=== PATIENT | female | born 1965 | race Caucasian/White ===

== ENCOUNTER 2022-03-03 07:07 | Day surgery (SDC) | payer OTHER ==
[2022-03-01 15:13] LABS: Absolute Lymphocytes (CBC) 3.5 K/uL (0.7-4.9); Hematocrit 45.8 % (36.0-45.0); Lymphocytes % 29.4 % (15.3-44.8); MCV 82.6 fL (80-100); MPV 8.6 fL (7.6-11.3); RBC Red Blood Cell Count 5.54 M/uL (3.86-4.86)
--- NOTE | 2022-03-01 15:22 | RAD REPORT ---
EXAM DESCRIPTION: RAD - Chest Pa And Lat (2 Views) - 03/01/2022 3:01 pm CLINICAL HISTORY: PRE OP Chest pain. COMPARISON: CHEST PA AND LAT 2 VIEW dated 08/10/2010; CHEST PA AND LAT 2 VIEW dated 11/29/2000 FINDINGS: The lungs are clear. The heart is normal in size. No displaced fractures. IMPRESSION: No acute or concerning finding suspected.
[2022-03-01 15:30] LABS: SARS-CoV-2 Antigen Rapid Res Negative (Negative)
[2022-03-01 15:36] LABS: Potassium 4.5 mmol/L (3.5-5.1)
--- NOTE | 2022-03-02 13:05 | EKG ---
Test Date: 2022-03-01 Test Time: 14:42:06 Telegraph Service Clerk: ED MEASUREMENT RESULTS: Intervals: Rate: 86 VA: 154 QRSD: 82 QT: 360 QTc: 430 [place]: P: 53 VA: 154 QRS: 63 T: 64 INTERPRETIVE STATEMENTS: Normal sinus rhythm Normal ECG Compared to ECG 08/10/2010 13:51:50 No significant changes Electronically Signed On 03-02-22 13:04:21 CDT by Ricky Hoover
[2022-03-03] MEDS ORDERED: NA CHLORIDE 0.9% 1,000 ML ONE (07:35)
[2022-03-03] MEDS ORDERED: CIPROFLOXACIN 400mg IV 400 MG/200 ML BAG IV ONE (07:45)
[2022-03-03] MEDS ORDERED: ACETAMINOPHEN 500 MG TAB ONE (08:08)
[2022-03-03] MEDS ORDERED: CELECOXIB 100 MG CAPSULE ONE (08:09)
[2022-03-03] MEDS ORDERED: propofoL 200 MG/20 ML VIAL IV ONE (08:35)
[2022-03-03] MEDS ORDERED: LIDOCAINE 1% MPF 5 ML VIAL ONE (08:35)
[2022-03-03] MEDS ORDERED: FENTANYL CITR 100 MCG/2 ML ONE ×2 (08:35→09:28)
[2022-03-03] MEDS ORDERED: ROCURONIUM 50 MG/5 ML VIAL IV ONE (08:35)
[2022-03-03] MEDS ORDERED: MIDAZOLAM HCL 2 MG/2 ML INJ ONE (08:35)
[2022-03-03] MEDS ORDERED: KETOROLAC 30 MG/ML INJ ONE (09:27)
[2022-03-03] MEDS ORDERED: dexAMETHasone 10 MG/ML VIAL ONE (09:27)
[2022-03-03] MEDS ORDERED: ONDANSETRON 4 MG/2 ML VIAL ONE (09:28)
[2022-03-03] MEDS ORDERED: GLYCOPYRROLATE 0.2 MG/ML SYR ONE (09:32)
[2022-03-03] MEDS ORDERED: HYDROCODONE/APAP 7.5/325 MG TAB PO PRN (10:02)
[2022-03-03] MEDS ORDERED: NEOSTIGMINE 1 MG/ML -10 ML VIAL ONE (10:03)
--- NOTE | 2022-03-03 10:11 | P.OP ---
Date of Service: 03/03/22 Preop diagnosis: Incarcerated umbilical hernia Postop diagnosis: Same with extensive adhesions in the left side of the abdomen Procedure performed: Laparoscopic repair of incarcerated umbilical hernia, lysis of adhesion Surgeon: Michael Johnson MD [employer] Facility Operator: NEFTALI Jauregui Estimated blood loss: Minimal Specimen: Hernia sac and contents Findings: As above Anesthesia: General Complications: None Drains: None Fluids and blood products: Nonapplicable Disposition: Recovery room Operative note: Patient brought to the OR and placed in the supine position. General anesthesia begun. Patient prepped and draped in the usual sterile fashion. Marcaine 0.5% infiltrated locally. 15 blade used to make a 1 cm left upper quadrant incision. Subcutaneous tissue divided. Fascia none findings identified and divided. #1 Vicryl stay suture placed. Peritoneal cavity entered with sharp and blunt dissection. 12 mm trocar placed into the peritoneal cavity under direct vision. Pneumoperitoneum established. 2 5 mm trochars placed1 in the left lower quadrant and 1 in the left middle quadrant. Laparoscopy revealed incarcerated omentum. This was carefully dissected with LigaSure. And then, a 3 cm incision was made over the umbilicus. Subcutaneous tissue divided. Hernia sac and contents identified and excised. A 2 cm defect remained. #1 PDS [id number] suture was used to close the defect. Then pneumoperitoneum reestablished. Bard balloon system mesh deployed, in the standard fashion. Complete coverage of the the hernia accomplished with at least 3 cm borders in all direction. Sorbitex used to secure the mesh to the peritoneal surface. And then all components of the balloon system was removed intact. Left upper quadrant was examined and there was extensive omental adhesions there. LigaSure was used to lyse all of these adhesions. Approximately 10 to 12 minutes were needed to lyse all of the adhesions. There was no evidence of bleeding or bowel injury appreciated in the peritoneal cavity. Then all trochars removed under direct vision. Stay sutures tied to each other reapproximate the fascial defect. Subcutaneous tissue area irrigated bleeding controlled with cautery. 3-0 chromic used to approximate the subcutaneous tissue and close skin. Sterile dressing applied. Patient awakened and taken to recovery room in good general condition. CC: Dr. Ward's office
[2022-03-03] MEDS ORDERED: HYDROCODONE/APAP 7.5/325 MG TAB ONE (11:22)
[2022-03-03 14:25] VITALS: BP 138/75; TEMP 97.3; O2SAT 93
== END 2022-03-03 11:30 | disposition home or self-care (01) ==
LOC: OR 07:07
PROVIDERS: ATTEND Surgery
PROC: 0DNU4ZZ Release Omentum, Percutaneous Endoscopic Approach (ICD-10-PCS; 2022-03-03)
PROC: 0WUF4JZ Supplement Abdominal Wall with Synthetic Substitute, Percutaneous Endoscopic Approach (ICD-10-PCS; principal; 2022-03-03 08:30)
DX: K42.0 Umbilical hernia with obstruction, without gangrene (principal); K66.0 Peritoneal adhesions (postprocedural) (postinfection); Z20.822 Contact with and (suspected) exposure to COVID-19
CPT/HCPCS: 93005; 85025; 80048; 36415; 82947 ×2; 88302; 71046; 87811; 49653; 49329; J2704; J2710; J2250; J3010 ×2; J1100; J7030; J2405; J0744

== ENCOUNTER 2022-07-10 07:26 | Day surgery (SDC) | payer OTHER ==
[2022-07-07 15:03] LABS: Potassium 4.7 mmol/L (3.5-5.1)
[2022-07-10] MEDS: NA CHLORIDE 0.9% 1,000 ML ONE ×3 (08:00→09:08)
[2022-07-10] MEDS ORDERED: ROCURONIUM 50 MG/5 ML VIAL IV ONE (08:06)
[2022-07-10] MEDS ORDERED: MIDAZOLAM HCL 2 MG/2 ML INJ ONE (08:06)
[2022-07-10] MEDS ORDERED: propofoL 200 MG/20 ML VIAL IV ONE (08:06)
[2022-07-10] MEDS ORDERED: FENTANYL CITR 100 MCG/2 ML ONE (08:06)
[2022-07-10] MEDS ORDERED: LIDOCAINE 1% MPF 5 ML VIAL ONE (08:06)
[2022-07-10] MEDS: CEFOXITIN SODIUM 2 GM/VIAL ONE ×2 (08:43→09:15)
[2022-07-10] MEDS: BUPIVACAINE 0.25% PF 10 ML VIAL ONE ×2 (08:44→09:26)
[2022-07-10] MEDS ORDERED: NS 0.9% VIAL 10 ML ONE (09:11)
[2022-07-10] MEDS ORDERED: dexAMETHasone 10 MG/ML VIAL ONE (09:24)
[2022-07-10] MEDS ORDERED: ONDANSETRON 4 MG/2 ML VIAL ONE (09:31)
[2022-07-10] MEDS ORDERED: EPHEDRINE SULF 50 MG/ML VIAL ONE (09:56)
[2022-07-10] MEDS ORDERED: NEOSTIGMINE 1 MG/ML -10 ML VIAL ONE (09:58)
[2022-07-10] MEDS ORDERED: GLYCOPYRROLATE 0.2 MG/ML SYR ONE (09:58)
--- NOTE | 2022-07-10 10:17 | P.OP ---
Preoperative diagnosis: Cholecystitis Postoperative diagnosis: Cholecystitis Primary procedure: Laparoscopic cholecystectomy with ICG Cholangiography Anesthesia: GETA + Local Estimated blood loss: <5cc Specimen: Gallbladder Findings: Distended GB, Adhesions to mesh, Short cystic duct, large segment 1 Complications: None Transferred to: Recovery Room Condition: Good
[2022-07-10] MEDS: HYDROMORPHONE HCL 1 MG/ML INJ ONE ×2 (10:45→10:58)
[2022-07-10] MEDS ORDERED: INSULIN -REGULAR HUMAN 50 UNIT/0.5 ML ML ONE (10:51)
[2022-07-10] MEDS ORDERED: HYDROMORPHONE HCL 1 MG/ML INJ ONE (11:09)
[2022-07-10 12:16] VITALS: BP 125/71; TEMP 97.3; O2SAT 95
--- NOTE | 2022-07-10 18:15 | OP ---
Date of Procedure: 07/10/2022 Surgeon: Nile Lr MD, Preoperative Diagnosis: Cholecystitis. Postoperative Diagnosis: Cholecystitis. Procedure Performed: Laparoscopic cholecystectomy with ICG cholangiography. Anesthesia: General endotracheal plus local with 0.25% Marcaine. Estimated Blood Loss: Less than 5 cc. Specimen: Gallbladder. Findings: 1.Distended gallbladder, adhesions. 2.Adhesions between omentum to mesh in the anterior abdominal wall in the periumbilical region. 3.Short cystic duct. 4.Large segment 1 of the liver and a large floppy liver in general. Complications: None. Disposition: The patient was transferred to the recovery room in good condition. Procedure In Detail: After informed consent was obtained, the patient was brought into the operating room, prepped and draped in the usual sterile fashion after adequate anesthesia was achieved. The s upraumbilical area was anesthetized with 0.25% Marcaine, sharply incised. A 5 mm trocar was placed u nder direct visualization without evidence of complication. Insufflation was obtained to 15 mmHg. A t this time, there was no injury to vital structures upon entry into the abdomen. Three additional t rocars were placed, 1 in the epigastrium and 2 in the right upper quadrant. All these were 5 mm troc ars and placed under direct visualization without evidence of complication. The umbilical trocar was then upsized total to 11 mm under direct visualization without evidence of complication. The patien t was positioned head up right-side up position. Ratcheted grasper was used to grasp the patient's g allbladder, placed towards the patient's right shoulder. Visualization was difficult at this time. There were intraabdominal adhesions. As such, the EnSeal device was brought in and assisted with [place] of periumbilical omental tissue and the adhesions between the omentum to the anterior abdominal wall multiple locations including in the periumbilical region. After the area was cleansed and visu alization was optimized, the patient remained in the head up right-side up position. Ratcheted grasp er was used to grasp the patient's gallbladder, placed towards the patient's right shoulder. Dissect ion continued down on this large floppy gallbladder, which had a very floppy medial aspect of the karly er, which made visualization somewhat challenging with fourth trocar; however, I was able to visualiz e down to the neck/Mart's pouch of the gallbladder. At this point, electrocautery was used to di ssect through the peritoneal lining down to subcutaneous fat. Two structures were identified enterin g the gallbladder. The critical view of safety was obtained at this point identifying 2 structures i dentified as both cystic duct and cystic artery. Both of these were doubly ligated with titanium cli ps singly on the distal side. Endo Sindi were then used to ligate the cystic duct and cystic artery after indocyanine cholangiography was performed and assisted with visualization and identification o f the anatomy. At this point, the gallbladder was removed from the hepatic fossa without evidence of complication, placed in EndoCatch bag, removed the umbilical trocar, sent off for pathologic examina tion. The hepatic fossa was inspected. No additional hemostatic maneuvers were required at this poi nt. The area was copiously irrigated. Clips were found to be in good anatomic position. ICG cholan giography confirmed once again. There was no leakage from bile at the end of the procedure. The are a was copiously irrigated, suctioned out until completely dry. The patient was positioned in neutral position. The remaining effluent was suctioned out. The umbilical trocar site was then closed usin g a Aditya-Charissa suture passer with 0 Vicryl in interrupted fashion with good approximation of the tissues. The abdomen was completely desufflated under direct visualization without evidence of comp lication. The remaining trocars were removed. All skin incisions were copiously irrigated and close d with 4-0 Monocryl in running fashion Dermabond placed over top. The patient tolerated the procedur e well without evidence of complication and transferred to PACU in good condition. All counts were correct at the e nd of the case. TK/MODL Voice ID: [id number] Report ID: [id number]
== END 2022-07-10 12:12 | disposition home or self-care (01) ==
LOC: OR 07:26
PROVIDERS: ATTEND Surgery
PROC: BF13YZZ Fluoroscopy of Gallbladder and Bile Ducts using Other Contrast (ICD-10-PCS; 2022-07-10)
PROC: 0FT44ZZ Resection of Gallbladder, Percutaneous Endoscopic Approach (ICD-10-PCS; principal; 2022-07-10 09:15)
DX: K80.10 Calculus of gallbladder with chronic cholecystitis without obstruction (principal); K66.0 Peritoneal adhesions (postprocedural) (postinfection)
CPT/HCPCS: 47563; 80048; 36415; 82947 ×3; 88304; J2704; J2710; J2001; J1815; J2250; J3010; J1100; A4216; J1170 ×2; J7030; J0694; J2405

== ENCOUNTER 2023-02-01 17:58 | Emergency (ER) | payer OTHER ==
--- OUTSIDE RECORDS SUMMARY | 2023-02-01 18:01 | XMS REPORT | Continuity of Care Document ---
:1965 Author Organization [facility] t Address [address] [place] [address] [place] [id number] Care Team Providers Name Role Phone Pawel Mayorga Attending Clinician Unavailable Dixie Attending Clinician Unavailable Joe Attending Clinician Unavailable ISRA JOLLEY Attending Clinician Unavailable Pawel Mayorga Admitting Clinician Unavailable Dixie Admitting Clinician Unavailable Joe Admitting Clinician Unavailable Payers Payer Name Policy Type Policy Number Effective Date Expiration Date S yunier AETNA - CHOICE [id number] 2017 (POS II) 00:00:00 [facility] [id number] 2017 CHOICE 00:00:00 [employer]ET[employer] CHOICE POS [id number] 2017 II 00:00:00 Problems Condition Condition Condition Status Onset Resolution Last Treating Co mments Source Name Details Category Date Date Treatment Clinician Date Incontinen Incontinen Problem Active [facility] ce of ce of 4-01 Medical feces Feces 00:00: 00 Bladder Bladder Problem Active [facility] muscle Muscle 4-01 Medical dysfunctio Dysfunctio 00:00: n - n - 00 overactive Overactive Diabetes Diabetes Problem Active [facility] mellitus Mellitus 2-19 Medica l 00:00: 00 Hyperchole Hyperchole Problem Active [facility] sterolemia sterolemia 2-19 Me dical 00:00: 00 Anemia Anemia Problem Active [facility] 2-19 Medical 00:00: 00 Migraine Migraine Problem Active [facility] 19 Medical 00:00: 00 Neuropathy Neuropathy Problem Active [facility] 19 Medical 00:00: 00 Disorder Disorder Problem Active [facility] of [facility] of Vision 09-24 Medi adela 00:00: 00 Hypertensi Hypertensi Problem Active [facility] ve ve 09-24 Medical disorder Disorder 00:00: 00 Gastroesop Gastroesop Problem Active [facility] hageal hageal 09-24 Medical reflux Reflux 00:00: disease Disease 00 Arthritis Arthritis Problem Active [facility] via 09-24 Medical 00:00: 00 History of History of Problem Active [facility] multiple Multiple 09-24 Medica l allergies Allergies 00:00: 00 Menopause Menopause Problem Active [facility] via 09-24 Medical 00:00: 00 Allergies, Adverse Reactions, Alerts Allergy Allergy Status Severity Reaction(s) Onset Inactive Treating Comm ents Source Name Type Date Date Clinician ASPIRIN DRUG Active Hives [facility] INGREDI 5-29 ity of 00:00: [place] 00 [facility] PENICILL Drug Active Unknown-Cmnt Un cheng INS Class 5-29 ity of 00:: [place] [id number] Medical Branch Mushroom Allergy Active Severe, Abdominal [facility] via to Severe, pain, Facial 08-06 Med ical substanc Severe, swelling, 00:00: e Severe, Hives, Rash, 00 Severe Vomiting Latex Allergy Active Moderate Hives [facility] to to severe 08-06 Medical substanc 00:00: e 00 Aspirin Allergy Active Moderate, Fever, [facility] to Moderate, Hives, 08-06 Medical substanc Moderate Itching, 00:00: e to Lightheadedn 00 severe, ess Moderate PENICILL Allergy Active Moderate Facial [facility] INS to to swelling, 08-06 Medical substanc severe, Fever, 00:00: e Moderate, Headache, 00 Moderate Itching to severe, Moderate to severe Social History Smoking Status Start Date Stop Date Source Former Smoker [facility] Medications Ordered Filled Start Stop Current Ordering Indication Dosage Frequency Signature Comments Components Source Medication Medication Date Date Medication? Clinician (SIG) Name Name acetaminoph acetaminoph No acetaminop [facility] en 300 en 300 hen 300 Medical mg-codeine mg-codeine mg-codeine 30 mg 30 mg 30 mg tablet TAKE tablet TAKE tablet 1 TABLET BY 1 TABLET BY TAKE 1 MOUTH EVERY MOUTH EVERY TABLET BY 4 TO 6 4 TO 6 MOUTH HOURS HOURS EVERY 4 TO NEEDED NEEDED 6 HOURS NEEDED Afluria Qd Afluria Qd No Afluria Qd [facility] ( (36 Medical mos mos (36 mos up)(PF)60 up)(PF)60 up)(PF)60 mcg (15 mcg mcg (15 mcg mcg (15 x4)/0.5 mL x4)/0.5 mL mcg IM syringe IM syringe x4)/0.5 mL ADM 0.5ML ADM 0.5ML IM syringe IM UTD IM UTD ADM 0.5ML IM UTD albuterol albuterol No albuterol [facility] sulfate HFA sulfate HFA sulfate Medical 90 90 HFA 90 mcg/actuati mcg/actuati mcg/actuat on aerosol on aerosol ion inhaler inhaler aerosol INHALE 2 INHALE 2 inhaler PUFFS BY PUFFS BY INHALE 2 MOUTH EVERY MOUTH EVERY PUFFS BY 6 HOURS IF 6 HOURS IF MOUTH NEEDED FOR NEEDED FOR EVERY 6 WHEEZING WHEEZING HOURS IF NEEDED FOR WHEEZING amitriptyli amitriptyli No amitriptyl [facility] ne 100 mg ne 100 mg ine 100 mg Medical tablet tablet tablet BinaxNOW BinaxNOW No BinaxNOW [facility] COVID-19 Ag COVID-19 Ag COVID-19 Medical Self Test Self Test Ag Self kit Use as kit Use as Test kit Directed on Directed on Use as the Package the Package Directed on the Package carvedilol carvedilol No carvedilol [facility] 25 mg 25 mg 25 mg Medical tablet TAKE tablet TAKE tablet 2 TABLETS 2 TABLETS TAKE 2 BY MOUTH BY MOUTH TABLETS BY TWICE DAILY TWICE DAILY MOUTH TWICE DAILY cholestyram cholestyram No cholestyra [facility] ine (with ine (with mine (with Medical sugar) 4 sugar) 4 sugar) 4 gram powder gram powder gram for susp in for susp in powder for a packet a packet susp in a MIX 1 MIX 1 packet MIX PACKET WITH PACKET WITH 1 PACKET FLUIDS FLUIDS WITH DIRECTED DIRECTED FLUIDS AND DRINK AND DRINK DIRECTED BY MOUTH 1 BY MOUTH 1 AND DRINK HOUR BEFORE HOUR BEFORE BY MOUTH 1 LUNCH LUNCH HOUR BEFORE LUNCH clindamycin clindamycin No clindamyci [facility] HCl 300 mg HCl 300 mg n HCl 300 Medical capsule capsule mg capsule TAKE ONE TAKE ONE TAKE ONE CAPSULE BY CAPSULE BY CAPSULE BY MOUTH FOUR MOUTH FOUR MOUTH FOUR TIMES DAILY TIMES DAILY TIMES UNTIL ALL UNTIL ALL DAILY TAKEN FOR TAKEN FOR UNTIL ALL DENTAL DENTAL TAKEN FOR INFECTION INFECTION DENTAL INFECTION diazepam 5 diazepam 5 No diazepam 5 [facility] mg tablet mg tablet mg tablet Medical diltiazem diltiazem No diltiazem [facility] CD 180 mg CD 180 mg CD 180 mg Medical capsule,ext capsule,ext capsule,ex ended ended tended release 24 release 24 release 24 hr hr hr diltiazem diltiazem No diltiazem [facility] ER 180 mg ER 180 mg ER 180 mg Medical capsule,24 capsule,24 capsule,24 hr,extended hr,extended hr,extende release TK release TK d release 1 C PO BID. 1 C PO BID. TK 1 C PO BID. duloxetine duloxetine No duloxetine [facility] 30 mg 30 mg 30 mg Medical capsule,del capsule,del capsule,de ayed ayed layed release release release estradiol estradiol No estradiol [facility] 0.01% (0.1 0.01% (0.1 0.01% (0.1 Medical mg/gram) mg/gram) mg/gram) vaginal vaginal vaginal cream cream cream INSERT 0.5 INSERT 0.5 INSERT 0.5 GRAM GRAM GRAM VAGINALLY 2 VAGINALLY 2 VAGINALLY TIMES A TIMES A 2 TIMES A WEEK AT WEEK AT WEEK AT BEDTIME BEDTIME BEDTIME fenofibrate fenofibrate No fenofibrat [facility] nanocrystal nanocrystal e M edical lized 145 lized 145 nanocrysta mg tablet mg tablet llized 145 mg tablet fluconazole fluconazole No fluconazol [facility] 200 mg 200 mg e 200 mg Medical tablet 1 tablet 1 tablet 1 tab PO QOD tab PO QOD tab PO QOD x 2 doses x 2 doses x 2 doses hydrocodone hydrocodone No hydrocodon [facility] 5 5 e 5 Medical mg-acetamin mg-acetamin mg-acetami ophen 325 ophen 325 nophen 325 mg tablet mg tablet mg tablet TAKE 1 TAKE 1 TAKE 1 TABLET BY TABLET BY TABLET BY MOUTH EVERY MOUTH EVERY MOUTH 8 HOURS FOR 8 HOURS FOR EVERY 8 7 DAYS 7 DAYS HOURS FOR NEEDED NEEDED 7 DAYS NEEDED loratadine loratadine No 1 Q1D loratadine [facility] 10 mg 10 mg 10 mg Medical tablet Take tablet Take tablet 1 tablet 1 tablet Take 1 every day every day tablet by oral by oral every day route. route. by oral route. losartan losartan No losartan [facility] 100 mg 100 mg 100 mg Medical tablet TAKE tablet TAKE tablet 1 TABLET BY 1 TABLET BY TAKE 1 MOUTH ONCE MOUTH ONCE TABLET BY DAILY DAILY MOUTH ONCE DAILY magnesium magnesium No magnesium [facility] metformin metformin No metformin [facility] ER 500 mg ER 500 mg ER 500 mg Medical tablet,exte tablet,exte tablet,ext nded nded ended release 24 release 24 release 24 hr TAKE 2 hr TAKE 2 hr TAKE 2 TABLETS BY TABLETS BY TABLETS BY MOUTH TWICE MOUTH TWICE MOUTH DAILY DAILY TWICE DAILY metronidazo metronidazo No metronidaz [facility] le 500 mg le 500 mg ole 500 mg Medical tablet TAKE tablet TAKE tablet 1 TABLET BY 1 TABLET BY TAKE 1 MOUTH THREE MOUTH THREE TABLET BY TIMES DAILY TIMES DAILY MOUTH THREE TIMES DAILY Myrbetriq Myrbetriq No Myrbetriq [facility] 25 mg 25 mg 25 mg Medical tablet,exte tablet,exte tablet,ext nded nded ended release release release TAKE 1 TAKE 1 TAKE 1 TABLET BY TABLET BY TABLET BY MOUTH EVERY MOUTH EVERY MOUTH DAY DAY EVERY DAY DIRECTED DIRECTED DIRECTED nitrofurant nitrofurant No nitrofuran [facility] oin oin toin Medical monohydrate monohydrate monohydrat /macrocryst /macrocryst e/macrocry als 100 mg als 100 mg stals 100 capsule capsule mg capsule Take 1 Take 1 Take 1 capsule capsule capsule after after after cystoscopy cystoscopy cystoscopy omeprazole omeprazole No omeprazole [facility] 20 mg 20 mg 20 mg Medical capsule,del capsule,del capsule,de ayed ayed layed release release release TAKE ONE TAKE ONE TAKE ONE CAPSULE BY CAPSULE BY CAPSULE BY MOUTH EVERY MOUTH EVERY MOUTH DAY DAY EVERY DAY omeprazole omeprazole No omeprazole [facility] 40 mg 40 mg 40 mg Medical capsule,del capsule,del capsule,de ayed ayed layed release release release TAKE 1 TAKE 1 TAKE 1 CAPSULE BY CAPSULE BY CAPSULE BY MOUTH DAILY MOUTH DAILY MOUTH DAILY pantoprazol pantoprazol No pantoprazo [facility] e 40 mg e 40 mg le 40 mg Medic al tablet,sherry tablet,sherry tablet,del yed release yed release ayed release pioglitazon pioglitazon No pioglitazo [facility] e 15 mg e 15 mg ne 15 mg Medic al tablet TAKE tablet TAKE tablet 2 TABLETS 2 TABLETS TAKE 2 BY MOUTH BY MOUTH TABLETS BY EVERY EVERY MOUTH MORNING MORNING EVERY MORNING pioglitazon pioglitazon No pioglitazo [facility] e 30 mg e 30 mg ne 30 mg Medic al tablet tablet tablet Plenvu 140 Plenvu 140 No Plenvu 140 [facility] gram-9 gram-9 gram-9 Medical gram-5.2 gram-5.2 gram-5.2 gram powder gram powder gram packs TAKE packs TAKE powder DIRECTED DIRECTED packs TAKE BY THE BY THE PHYSICIAN PHYSICIAN DIRECTED BY THE PHYSICIAN pregabalin pregabalin No pregabalin [facility] 75 mg 75 mg 75 mg Medical capsule capsule capsule sucralfate sucralfate No sucralfate [facility] 1 gram 1 gram 1 gram Medical tablet TAKE tablet TAKE tablet 1 TABLET BY 1 TABLET BY TAKE 1 MOUTH AT MOUTH AT TABLET BY BEDTIME BEDTIME MOUTH AT BEDTIME tizanidine tizanidine No tizanidine [facility] 4 mg tablet 4 mg tablet 4 mg M edical TAKE 1 TAKE 1 tablet TABLET BY TABLET BY TAKE 1 MOUTH AT MOUTH AT TABLET BY BEDTIME BEDTIME MOUTH AT NEEDED NEEDED BEDTIME NEEDED Toujeo Max Toujeo Max No Toujeo Max [facility] U-300 U-300 U-300 Medical SoloStar SoloStar SoloStar 300 unit/mL 300 unit/mL 300 (3 mL) (3 mL) unit/mL (3 subcutaneou subcutaneou mL) s insulin s insulin subcutaneo pen pen us insulin ADMINISTER ADMINISTER pen 50 UNITS 50 UNITS ADMINISTER UNDER THE UNDER THE 50 UNITS SKIN EVERY SKIN EVERY UNDER THE DAY DAY SKIN EVERY DAY triazolam triazolam No triazolam [facility] 0.25 mg 0.25 mg 0.25 mg Medica l tablet TK 1 tablet TK 1 tablet TK T PO 1 H T PO 1 H 1 T PO 1 H PRIOR TO PRIOR TO PRIOR TO DENTAL DENTAL DENTAL APPOINTMENT APPOINTMENT APPOINTMEN AND BRING AND BRING T AND REMAINING REMAINING BRING TABLETS TO TABLETS TO REMAINING DENTAL DENTAL TABLETS TO APPOINTMENT APPOINTMENT DENTAL APPOINTMEN T venlafaxine venlafaxine No venlafaxin [facility] ER 150 mg ER 150 mg e ER 150 M edical capsule,ext capsule,ext mg ended ended capsule,ex release 24 release 24 tended hr TAKE 1 hr TAKE 1 release 24 CAPSULE BY CAPSULE BY hr TAKE 1 MOUTH DAILY MOUTH DAILY CAPSULE BY MOUTH DAILY Victoza Victoza No Victoza [facility] 2-Eligio 0.6 2-Eligio 0.6 2-Eligio 0.6 Medical mg/0.1 mL mg/0.1 mL mg/0.1 mL (18 mg/3 (18 mg/3 (18 mg/3 mL) mL) mL) subcutaneou subcutaneou subcutaneo s pen s pen us pen injector injector injector ADMINISTER ADMINISTER ADMINISTER 1.8 MG 1.8 MG 1.8 MG UNDER THE UNDER THE UNDER THE SKIN EVERY SKIN EVERY SKIN EVERY DAY DAY DAY Vitamin B12 Vitamin B12 No Vitamin [facility] B12 Medical Vitamin D3 Vitamin D3 No Vitamin D3 [facility] Medical Vital Signs Vital Name Observation Time Observation Value Comments Source BMI (Body Mass Index) 2022-11-15 00:00:00 28.9 kg/m2 [facility] Medical BP Systolic 2022-11-15 00:00:00 145 mm[Hg] Camelia Cowart ical Body Weight 2022-11-15 00:00:00 179 [lb_av] Camelia Cowart ical BP Diastolic 2022-11-15 00:00:00 87 mm[Hg] [facility] ed[facility] Height 2022-11-15 00:00:00 66 [in_i] Camelia Cowart [facility] Procedures Procedure Date / Time Performed Performing Clinician [facility] e SCREENING MAMMOGRAPHY BOTH 2022-11-15 00:00:00 [facility] Medical BREASTS INCLUDING COMPUTER AIDED DETECTION BONE DENSITY MEASUREMENT 2022-11-15 00:00:00 [facility] Medical USING DEDICATED X RAY MACHINE Removal of Gallbladder 2021-08-06 00:00:00 [facility] Hysterectomy - Total 2007-08-06 00:00:00 [facility] Medical [facility] Lumpect[facility] Breast [facility] Medi adela Unlisted Px Foot/toes [facility] Med ical Plan of Care Planned Activity Planned Date Details Comments Source Diagnostic Test Pending 2022-11-15 [place] IgE Ab [facility] Medical 00:00:00 [Units/volume] in Serum [code = 6195-2] Diagnostic Test Pending 2022-11-15 Mucor racemosus IgE [facility] Medical 00:00:00 Ab [Units/volume] in Serum [code = 6182-0] Future Appointment 2023-11-16 Pawel Mayroga [address] [facility] via Medical 00:00:00 Maryjo Abernathy; , [place] [address] Encounters Start End Encounter Admission Attending Care Care Encounter Source Date/Time Date/Time Type Type Clinicians Facility Department ID 2022-11-23 2022-11-23 Outpatient JACINTA Mayorga [facility] PATRICIA [id number] [facility] 12:00:00 12:00:00 Pawel Hoang [facility] 2022-11-15 2022-11-15 Outpatient GC_SWHAOMC_ PRIV PRIV [id number] [facility] 00:00:00 00:00:00 [place] [id number] Medic al 2022-11-15 2022-11-15 Pawel [facility] 12 [facility] 00:00:00 00:00:00 [facility] felipe Mayorga GC_DARIUS_ MD: [id number], [place] [address] , Ph. 2022-11-14 2022-11-14 Outpatient GC_SWHAOMC_ PRIV PRIV [id number] [facility] 00:00:00 00:00:00 [place] [id number] Medic al 2022-11-14 2022-11-14 Outpatient GC_SWHAOMC_ PRIV PRIV [id number] [facility] 00:00:00 00:00:00 [place] [id number] Medic al 2022-11-10 2022-11-10 Outpatient GC_SWHAOMC_ PRIV PRIV [id number] [facility] 00:00:00 00:00:00 [place] [id number] Medic al 2022-11-09 2022-11-09 Outpatient GC_EAH_Brow PRIV PRIV [id number] [facility] 00:00:00 00:00:00 greg_Alma [id number] Medica l 2022-10-29 2022-10-29 Outpatient GC_SWHAOMC_ PRIV PRIV [id number] [facility] 00:00:00 00:00:00 [place] [id number] Medic al 2022-10-17 2022-10-17 Outpatient PRIV PRIV [id number] [facility] 00:00:00 00:00:00 [id number] Medica l 2022-10-10 2022-10-10 Outpatient GC_SWHAOMC_ PRIV PRIV [id number] [facility] 00:00:00 00:00:00 [place] [id number] Medic al 2021-10-14 2021-10-14 Outpatient GC_SWHAOMC_ PRIV PRIV [id number] [facility] 11:27:00 11:27:00 [place] [id number] Medic al 2021-05-03 2021-05-03 Outpatient GC_EAH_Brow PRIV PRIV [id number] [facility] 00:00:00 00:00:00 nOrestes [id number] Medica l 2021-01-24 2021-01-24 Outpatient JACINTA Mukesh, [facility] PATRICIA [id number] [facility] 12:00:00 12:00:00 Pawel Lobo [facility] greg [facility] 2020-10-31 2020-10-31 Outpatient [facility] [id number] Univers 10:05:00 10:05:00 [facility] 2020-10-03 2020-10-03 Outpatient Edin JOLLEY [facility] [id number] Univers 09:45:00 09:45:00 ISRA [facility] 2020-10-03 2020-10-03 [facility] [id number] Univers 08:45:00 08:45:00 [facility] 2020-09-30 2020-09-30 Outpatient [facility] [id number] Univers 11:00:00 11:00:00 [id number] [facility] Results Test Description Test Time Test Comments Results Result Comments Source Hemoglobin.gastrointestinal.lower [Presence] in Stool by 10-08-19 00:00:00 Immunoassay Test Item Value Reference Range Interpretation Comme nts occult bld,stool,immuno (test code = occult bld,stool,immuno) ne gative negative [facility] Medical[facility]ap, LB + HR [id number] 00:00:00 Test Item Value Reference Range Interpretation Comments Pap, liquid-based (test code = Pap, nilm nilm liquid-based) [facility] MedicalHemoglobin.gastrointestinal.lower [Presence] in Stool by [id number] 00:00:00 Test Item Value Reference Range Interpretation Comments occult bld, immunochem (test code = negative negative occult bld, immunochem) [facility] [id number] 00:00:00 Test Item Value Reference Range Interpretation Comments clinical information: total hysterectomy (test code = clinical information:) LMP date: (test code = LMP 09/24/2019 date:) Pap, liquid-based (test nilm code = Pap, liquid-based) source (liquid-based vaginal cuff cytology): (test code = source (liquid-based cytology):) [facility]
[2023-02-01] MEDS ORDERED: cloNIDine HCL 0.1 MG TAB ONE (18:37)
[2023-02-01 19:00] LABS: Absolute Lymphocytes (CBC) 3.1 K/uL (0.7-4.9); Hematocrit 41.7 % (36.0-45.0); Lymphocytes % 31.9 % (15.3-44.8); MCV 82.8 fL (80-100); MPV 9.5 fL (7.6-11.3); RBC Red Blood Cell Count 5.03 M/uL (3.86-4.86)
[2023-02-01 19:01] LABS: Protime INR 0.74
[2023-02-01 19:15] LABS: ALT/SGPT 23 U/L (13-56); AST/SGOT 11 U/L (15-37); Alkaline Phosphatase 75 U/L (45-117); BUN Blood Urea Nitrogen 12 mg/dL (7-18); Bicarbonate 27 mEq/L (21-32); Bilirubin Total 0.2 mg/dL (0.2-1.0); Glomerular Filtration Rate 96 ml/min (=/>90); Glucose Level 247 mg/dL (74-106); NT PRO-BNP 106 pg/mL (<125); Potassium 3.6 mEq/L (3.5-5.1); Sodium Level 135 mEq/L (136-145)
--- NOTE | 2023-02-01 19:15 | RAD REPORT ---
EXAM DESCRIPTION: VICKYChest Single View02/01/2023 6:33 pm CLINICAL HISTORY: CHEST PAIN COMPARISON: Chest Pa And Lat (2 Views) dated 03/01/2022; CHEST PA AND LAT 2 VIEW dated 08/10/2010; CHES T PA AND LAT 2 VIEW dated 11/29/2000 TECHNIQUE: Portable AP view of the chest. FINDINGS: The lungs are clear. No pneumothorax or effusion. The cardiomediastinal contours are unre markable. IMPRESSION: No acute cardiopulmonary process.
[2023-02-01 19:16] LABS: Bilirubin Direct < 0.1 mg/dL (0-0.2); Bilirubin Indirect, Calculated ND mg/dL (0.2-0.8); Troponin High Sensitivity < 3.0 pg/mL (<58.9)
--- NOTE | 2023-02-01 19:21 | EDPHYS ---
Physician Documentation [facility] Name: Octavia Leonard Age: 57 yrs Sex: Female : 1965 Arrival Date: 02/01/2023 Time: 17:58 Bed 18 Private MD: ED Physician Wilman Figueroa HPI: 02/01 18:22 This 57 yrs old Female presents to ER via Ambulatory with complaints of High Blood rn Pressure. 18:22 The patient has elevated blood pressure and discovered this at a physician's office. rn Onset: The symptoms/episode began/occurred at an unknown time. Modifying factors:. Associated signs and symptoms: Pertinent positives: chest pain, headache, Pertinent negatives: visual changes, vomiting, weakness. Severity of symptoms: At its worst the blood pressure was severe, in the emergency department the blood pressure is unchanged. The patient has experienced similar episodes in the past. The patient has been recently seen by a physician:. Pt reports told to come to ER yesterday after visit with her doctor showed high BP. Has had high blood pressure for years, at some point her meds were cut in half, and BP has been rising consistently. Shows me BP log and BP this high even back in 05/27, and consistently elevated. REports intermittent chest pain that lasts for seconds, no abd pain, no vomiting, no diarrhea. NO focal weakness. No vision changes. . 18:22 Recently started smoking again and under a lot of stress.. rn Historical: - Allergies: 18:19 PENICILLINS; nj1 18:19 Aspirin; nj1 18:19 Latex, Natural Rubber; nj1 18:19 Mushrooms; nj1 - PMHx: 18:19 Hypertensive disorder; Diabetes mellitus; Hypercholesterolemia; Angina pectoris; nj1 Anxiety; GERD; - PSHx: 18:19 Cholecystectomy; Left breast lumpectomy; Hysterectomy; Bunionectomy; nj1 - Immunization history:: Client reports receiving the 2nd dose of the Covid vaccine. - Social history:: Smoking status: Patient reports the use of cigarette tobacco products, smokes one-half pack cigarettes per day. - Family history:: not pertinent. - Hospitalizations: : No recent hospitalization is reported. ROS: 18:22 Constitutional: Negative for fever, chills, and weight loss, Eyes: Negative for injury, rn pain, redness, and discharge, Neck: Negative for injury, pain, and swelling, Cardiovascular: Negative for palpitations, and edema, Respiratory: Negative for shortness of breath, cough, wheezing, and pleuritic chest pain, Abdomen/GI: Negative for abdominal pain, nausea, vomiting, diarrhea, and constipation, Back: Negative for injury and pain, MS/Extremity: Negative for injury and deformity, Skin: Negative for injury, rash, and discoloration, Neuro: Negative for headache, weakness, numbness, tingling, and seizure. Exam: 18:22 Constitutional: This is a well developed, well nourished patient who is awake, alert, rn and in no acute distress. Head/Face: Normocephalic, atraumatic. Neck: Trachea midline, no masses palpated, and no cervical lymphadenopathy. Supple, full range of motion without nuchal rigidity, or vertebral point tenderness. No Meningismus. Cardiovascular: Regular rate and rhythm. No pulse deficits. Respiratory: No increased work of breathing, no retractions or nasal flaring. Abdomen/GI: Soft, non-tender Skin: Warm, dry MS/ Extremity: Pulses equal, no cyanosis. Neuro: Awake and alert, GCS 15, oriented to person, place, time, and situation. Cranial nerves II-XII grossly intact. Motor strength 5/5 in all extremities. Sensory grossly intact. Cerebellar exam normal. 18:54 ECG was reviewed by the Attending Physician. rn Vital Signs: 18:08 BP 179 / 129; Pulse 88; Resp 18; Pulse Ox 99% ; Weight 79.38 kg; Height 5 ft. 4 in. ; [facility] 18:25 BP 185 / 99; Pulse 87; Resp 18; Pulse Ox 98% ; [facility] 18:48 BP 172 / 93; Pulse 78; Resp 17; Pulse Ox 100% on R/A; mb9 19:10 BP 147 / 72; Pulse 76; Resp 19; Pulse Ox 100% on R/A; mb9 18:08 Body Mass Index 30.04 (79.38 kg, 162.56 cm) [facility] MDM: 18:05 Patient medically screened. rn 19:19 Differential diagnosis: hypertensive crisis, Malignant HTN. Data reviewed: vital signs, rn nurses notes, lab test result(s), EKG, radiologic studies, plain films, and as a result, I will discharge patient. Counseling: I had a detailed discussion with the patient and/or guardian regarding: the historical points, exam findings, and any diagnostic results supporting the discharge/admit diagnosis, lab results, radiology results, the need for outpatient follow up, to return to the emergency department if symptoms worsen or persist or if there are any questions or concerns that arise at home. Counseling: I had a detailed discussion with the patient and/or guardian regarding: the presence of at least one elevated blood pressure reading (>120/80) during this emergency department visit. Response to treatment: the patient's symptoms have markedly improved after treatment. Special discussion: I have referred the patient to see his PCP for further evaluation of high blood pressure. I discussed with the patient/guardian in detail that at this point there is no indication for admission to the hospital. It is understood, however, that if the symptoms persist or worsen the patient needs to return immediately for re-evaluation. Based on the history and exam findings, there is no indication for further emergent testing or inpatient evaluation. I discussed with the patient/guardian the need to see the pulley man for further evaluation of the symptoms. I discussed with the patient/guardian the need to see the primary care provider for further evaluation of the symptoms. 19:19 Counseling: I had a detailed discussion with the patient and/or guardian regarding: rn smoking cessation. 19:19 Care significantly affected by the following chronic conditions: Diabetes, Hypertension. 02/01 18:20 Order name: Basic Metabolic Panel; Complete Time: 19:16 02/01 18:20 Order name: CBC with Diff; Complete Time: 19:08 02/01 18:20 Order name: LFT's; Complete Time: 19: 02/01 18:20 Order name: NT PRO-BNP; Complete Time: 19:16 02/01 18:20 Order name: PT-INR; Complete Time: 19:16 02/01 18:20 Order name: Troponin HS; Complete Time: 19:16 02/01 18:20 Order name: XRAY Chest (1 view); Complete Time: 19:16 02/01 18:20 Order name: EKG; Complete Time: 18:21 02/01 18:20 Order name: Cardiac monitoring; Complete Time: 18:27 02/01 18:20 Order name: EKG - Nurse/Tech; Complete Time: 18:47 02/01 18:20 Order name: IV Saline Lock; Complete Time: 18:47 rn 02/01 18:20 Order name: Labs collected and sent; Complete Time: 18:47 rn 02/01 18:20 Order name: O2 Per Protocol; Complete Time: 18:27 rn 02/01 18:20 Order name: O2 Sat Monitoring; Complete Time: 18:27 rn EC:54 Rate is 78 beats/min. Rhythm is regular. QRS Kouts is Normal. NM interval is normal. QRS rn interval is normal. QT interval is normal. No Q waves. T waves are Normal. No ST changes noted. Clinical impression: Normal ECG. Interpreted by me. Reviewed by me. 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
--- NOTE | 2023-02-01 19:21 | ER ---
Nurse's Notes [facility] Name: Octavia Leonard Age: 57 yrs Sex: Female : 1965 Arrival Date: 02/01/2023 Time: 17:58 Bed 18 Private MD: Diagnosis: Essential (primary) hypertension Presentation: 02/01 18:08 Chief complaint: Patient states: High blood pressure since September. Worse lately. Was nj1 at PCP today, blood pressure reading high, advised to come to ED for further eval/treatment. Coronavirus screen: Vaccine status: Patient reports receiving the 2nd dose of the covid vaccine. Ebola Screen: Patient denies travel to an Ebola-affected area in the 21 days before illness onset. Initial Sepsis Screen: Does the patient meet any 2 criteria? No. Patient's initial sepsis screen is negative. Does the patient have a suspected source of infection? No. Patient's initial sepsis screen is negative. Risk Assessment: Do you want to hurt yourself or someone else? Patient reports no desire to harm self or others. Onset of symptoms was September 2022. 18:08 Method Of Arrival: Ambulatory [facility] 18:08 Acuity: ALIDA 3 nj1 Historical: - Allergies: 18:19 PENICILLINS; nj1 18:19 Aspirin; nj1 18:19 Latex, Natural Rubber; nj1 18:19 Mushrooms; nj1 - PMHx: 18:19 Hypertensive disorder; Diabetes mellitus; Hypercholesterolemia; Angina pectoris; nj1 Anxiety; GERD; - PSHx: 18:19 Cholecystectomy; Left breast lumpectomy; Hysterectomy; Bunionectomy; nj1 - Immunization history:: Client reports receiving the 2nd dose of the Covid vaccine. - Social history:: Smoking status: Patient reports the use of cigarette tobacco products, smokes one-half pack cigarettes per day. - Family history:: not pertinent. - Hospitalizations: : No recent hospitalization is reported. Screenin:48 [facility] ED Fall Risk Assessment (Adult) History of falling in the last 3 months, mb9 including since admission No falls in past 3 months (0 pts) Confusion or Disorientation No (0 pts) Intoxicated or Sedated No (0 pts) Impaired Gait No (0 pts) Mobility Assist Device Used No (0 pt) Altered Elimination No (0 pt) Score/Fall Risk Level 0 - 2 = Low Risk Oriented to surroundings, Maintained a safe environment, Educated pt \T\ family on fall prevention, incl call for assistance when getting out of bed. Abuse screen: Denies threats or abuse. Nutritional screening: No deficits noted. Tuberculosis screening: No symptoms or risk factors identified. Assessment: 18:49 General: Appears in no apparent distress. Behavior is cooperative, appropriate for age. mb9 Pain: Complains of pain in chest Pain does not radiate. Pain: Quality of pain is described as pressure, Pain began gradually, Is intermittent. Neuro: Ramires Agitation-Sedation Scale (RASS): 0 - Alert and Calm Level of Consciousness is awake, alert, obeys commands, Oriented to person, place, time, situation, Appropriate for age. Cardiovascular: Reports chest pain, Heart tones S1 S2 present Patient's skin is warm and dry. Rhythm is regular. Respiratory: Airway is patent Respiratory effort is even, unlabored, Respiratory pattern is regular, symmetrical. GI: Abdomen is round non-distended, Bowel sounds present X 4 quads. Abd is soft and non tender X 4 quads. Derm: Skin is pink, warm \T\ dry. Musculoskeletal: Range of motion: intact in all extremities. Vital Signs: 18:08 BP 179 / 129; Pulse 88; Resp 18; Pulse Ox 99% ; Weight 79.38 kg; Height 5 ft. 4 in. ; nj1 18:25 BP 185 / 99; Pulse 87; Resp 18; Pulse Ox 98% ; nj1 18:48 BP 172 / 93; Pulse 78; Resp 17; Pulse Ox 100% on R/A; mb9 19:10 BP 147 / 72; Pulse 76; Resp 19; Pulse Ox 100% on R/A; mb9 18:08 Body Mass Index 30.04 (79.38 kg, 162.56 cm) [facility] ED Course: 18:03 Patient arrived in ED. im 18:05 Wilman Figueroa MD is Attending Physician. rn 18:19 Triage completed. nj1 18:25 Arm band placed on left wrist. vt1 18:27 Savanna Browning, RN is Primary Nurse. 9 18:30 EKG done, by ED staff, reviewed by Wilman Figueroa MD. Inserted saline lock: 22 gauge in 9 right wrist, using aseptic technique. 18:35 XRAY Chest (1 view) In Process Unspecified. EDMS 18:47 Basic Metabolic Panel Sent. mb9 18:47 CBC with Diff Sent. mb9 18:47 LFT's Sent. mb9 18:47 NT PRO-BNP Sent. mb9 18:47 PT-INR Sent. mb9 18:47 Troponin HS Sent. mb9 18:48 Placed in gown. Bed in low position. Call light in reach. Side rails up X 1. Client mb9 placed on continuous cardiac and pulse oximetry monitoring. NIBP monitoring applied. equipment monitor phototypesetting on. 18:48 No provider procedures requiring assistance completed. mb9 19:27 IV discontinued, intact, bleeding controlled, No redness/swelling at site. Pressure as6 dressing applied. Administered Medications: 18:39 Drug: cloNIDine PO 0.2 mg Route: PO; mb9 19:04 Follow up: Response: No adverse reaction mb9 Medication: 18:48 VIS not applicable for this client. mb9 Outcome: 19:20 Discharge ordered by . rn 19:27 Discharged to home ambulatory. as6 19:27 Condition: stable 19:27 Discharge instructions given to patient, Instructed on discharge instructions, follow up and referral plans. Demonstrated understanding of instructions, follow-up care. 19:28 Patient left the ED. as6 Signatures: Dispatcher [employer] EDMS Wilman Figueroa MD MD rn Slawson, Ashby RN RN as6 Savanna Browning RN RN mb9 Urmila Long RN RN nj1 Hue Galvez
[2023-02-01 20:08] VITALS: O2SAT 100
[2023-02-01 20:10] VITALS: BP 147/72
--- NOTE | 2023-02-02 08:48 | EKG ---
Test Date: 2023-02-01 Test Time: 18:37:03 Cooperative Education Director: MB MEASUREMENT RESULTS: Intervals: Rate: 78 IA: 150 QRSD: 98 QT: 374 QTc: 426 [place]: P: 62 IA: 150 QRS: 71 T: 65 INTERPRETIVE STATEMENTS: Normal sinus rhythm Normal ECG Compared to ECG 03/01/2022 14:42:06 No significant changes Electronically Signed On 02-02-23 08:47:33 CDT by Ricky Hoover
== END 2023-02-01 19:28 | disposition home or self-care (01) ==
LOC: ER 17:58
DX: I10 Essential (primary) hypertension (principal); E11.9 Type 2 diabetes mellitus without complications; E78.00 Pure hypercholesterolemia, unspecified; K21.9 Gastro-esophageal reflux disease without esophagitis; F17.210 Nicotine dependence, cigarettes, uncomplicated; Z88.6 Allergy status to analgesic agent; Z88.0 Allergy status to penicillin; Z91.018 Allergy to other foods; Z91.040 Latex allergy status
CPT/HCPCS: 36415; 71045; 80048; 80076; 83880; 84484; 85025; 85610; 93005